=== PATIENT | male | born 1935 | race Caucasian/White ===

== ENCOUNTER 2016-07-27 09:33 | Observation (INO) | payer MEDICARE, BC ==
[~2016-07-27 09:33] MED LIST: CASODEX50 MG PO; COLACE100 MG PO; FLOMAX0.4 MG PO; MACROBID 100 M100 MG PO; NORCO 10-325 T1 EACH PO; PROSCAR5 MG PO
[2016-07-28] MEDS ORDERED: NORCO 10-325 T1 EACH PO (14:40)
[2016-07-28] MEDS ORDERED: PROSCAR5 MG PO (14:40)
[2016-07-28] MEDS ORDERED: FLOMAX0.4 MG PO (14:40)
[2016-07-28] MEDS ORDERED: CASODEX50 MG PO (14:41)
[2016-07-28] MEDS ORDERED: COLACE100 MG PO (14:41)
[2016-07-28] MEDS ORDERED: BACTRIM DS TAB1 EACH PO (14:41)
== END 2016-07-28 15:00 | disposition home or self-care (01) ==
LOC: SDC 09:33 → MED 16:02
PROVIDERS: ADMIT Urology
DX: C61 Malignant neoplasm of prostate (principal); N40.0 Benign prostatic hyperplasia without lower urinary tract symptoms; N31.9 Neuromuscular dysfunction of bladder, unspecified; N32.3 Diverticulum of bladder; R33.9 Retention of urine, unspecified; N32.89 Other specified disorders of bladder; M19.90 Unspecified osteoarthritis, unspecified site; G89.29 Other chronic pain; E11.9 Type 2 diabetes mellitus without complications; Z87.440 Personal history of urinary (tract) infections; Z79.891 Long term (current) use of opiate analgesic; Z79.899 Other long term (current) drug therapy; Z90.89 Acquired absence of other organs; Z83.3 Family history of diabetes mellitus; Z80.52 Family history of malignant neoplasm of bladder
CPT/HCPCS: 88341; 88342; 96374; 96375; G0378; J0696; J2270; J2704; P9047; Q9967